=== PATIENT | female | born 1955 | race Caucasian/White ===

== ENCOUNTER 2019-09-30 06:45 | Emergency (ER) | payer OTHER ==
[~2019-09-30] VITALS: Ht 167.6 cm; Wt 68.5 kg
[2019-09-30 06:50] VITALS: BP 174/95
[2019-09-30] MEDS ORDERED: LYRICA300 MG PO (06:59)
[2019-09-30] MEDS ORDERED: SERTRALINE HCL100 MG PO (06:59)
[2019-09-30] MEDS ORDERED: SPIRIVA INH (07:00)
[2019-09-30] MEDS ORDERED: ONE-A-DAY WOMENS PO (07:01)
[2019-09-30] MEDS ORDERED: GNP B-COMPLEX1 EACH PO (07:01)
[2019-09-30] MEDS ORDERED: TRAMADOL 50 MG50 MG PO (07:02)
[2019-09-30] MEDS ORDERED: OMEPRAZOLE 20 M20 M1 PO (07:02)
[2019-09-30] MEDS ORDERED: KEFLEX500 M1 PO (08:06)
== END 2019-09-30 08:23 | disposition home or self-care (01) ==
LOC: M.ERS 06:45
DX: S61.411A Laceration without foreign body of right hand, initial encounter (principal); I10 Essential (primary) hypertension; J44.9 Chronic obstructive pulmonary disease, unspecified; F17.210 Nicotine dependence, cigarettes, uncomplicated; W26.8XXA Contact with other sharp object(s), not elsewhere classified, initial encounter; Y93.89 Activity, other specified; Y92.89 Other specified places as the place of occurrence of the external cause; Y99.8 Other external cause status

== ENCOUNTER 2020-05-21 11:31 | Emergency (ER) | payer OTHER ==
[~2020-05-21] VITALS: Ht 167.6 cm; Wt 77.1 kg
[~2020-05-21 11:31] MED LIST: GNP B-COMPLEX1 EACH PO; KEFLEX500 M1 PO; LYRICA300 MG PO; OMEPRAZOLE 20 M20 M1 PO; ONE-A-DAY WOMENS PO; SERTRALINE HCL100 MG PO; SPIRIVA INH; TRAMADOL 50 MG50 MG PO
[2020-05-21] MEDS ORDERED: MOBIC7.5 MG PO (11:43)
[2020-05-21] MEDS ORDERED: LISINOPRIL20 MG PO (11:44)
[2020-05-21] MEDS ORDERED: VENLAFAXINE HCL75 MG PO (11:45)
[2020-05-21] MEDS ORDERED: SPIRIVA18 MCG INH (11:45)
[2020-05-21] MEDS ORDERED: IPRAT-ALBUT 0.5-3 ML INH (11:46)
[2020-05-21] MEDS ORDERED: FLEXERIL PO (11:49)
[2020-05-21] MEDS ORDERED: NORCO 5-325 TA1 EAC2 PO (13:06)
[2020-05-21 13:18] VITALS: BP 182/86
== END 2020-05-21 13:19 | disposition home or self-care (01) ==
LOC: M.ERS 11:31
DX: M54.5 Low back pain (principal); I10 Essential (primary) hypertension; J44.9 Chronic obstructive pulmonary disease, unspecified